=== PATIENT | male | born 1980 | race Caucasian/White ===

== ENCOUNTER 2017-07-04 12:25 | Emergency (ER) | payer OTHER ==
[~2017-07-04] VITALS: Ht 172.7 cm; Wt 93.0 kg
[2017-07-04 12:29] VITALS: Ht 172.7 cm; Wt 93.0 kg
[2017-07-04 16:03] VITALS: BP 140/88
== END 2017-07-04 16:03 | disposition home or self-care (01) ==
LOC: ED 12:25
DX: S68.122A Partial traumatic metacarpophalangeal amputation of right middle finger, initial encounter (principal); W26.8XXA Contact with other sharp object(s), not elsewhere classified, initial encounter; Y93.89 Activity, other specified; Y92.89 Other specified places as the place of occurrence of the external cause; Y99.8 Other external cause status
CPT/HCPCS: 90715; J2001